=== PATIENT | female | born 1945 | race Caucasian/White ===

== ENCOUNTER → 2021-01-24 | Outpatient (CLI) | payer OTHER ==
[~2021-01-24] MED LIST: COREG12.5 MG PO; ESCITALOPRAM OX10 MG PO; LIPITOR TAB 1010 MG PO; LOVENOX SY40 MG/0.4 SQ; PERCOCET 5-3251 EACH PO; VITAMIN D22000 UNIT PO
== END ==
LOC: RT 10:23
DX: I48.0 Paroxysmal atrial fibrillation (principal)
CPT/HCPCS: 93005